=== PATIENT | male | born 1955 | race Caucasian/White ===

== ENCOUNTER 2016-11-09 12:01 | Emergency (ER) | payer OTHER ==
[~2016-11-09] VITALS: Ht 177.8 cm; Wt 85.0 kg
[2016-11-09 12:09] VITALS: O2SAT 97
[2016-11-09 12:14] VITALS: TEMP 36.9; Ht 177.8 cm; Wt 85.0 kg
--- NOTE | 2016-11-09 13:00 | EMERGENCY ROOM VISIT NOTE ---
History Report prepared by Giuseppe: Irlanda Leung Under the Supervision of: Dr. Prasad José M.D. First contact with patient: 12:36 Chief Complaint: CHEST PAIN Stated Complaint: BLURRED VISION/ CHEST TIGHTNESS Nursing Triage Summary: Pt presents to room b07 via [facility]. pt reports he felt fine earlier today and then was at [employer] and developed right eye vision blurriness, queasiness and mid chest pain. pt reports he is in town doing work and is from [place]. pt denies any hx of cardia issues. History of Present Illness The patient is a 61 year old male who presents to the Emergency Room with complaints of dull, persistent chest pain that began three to four days ago. He currently rates his discomfort as a 3/10 in severity. The patient states that today he was at the [employer] when he started noticing a change in his vision. He states that he has been becoming clammy and diaphoretic. The patient states that he noticed increased chest pain and became nauseous. He states that he felt syncopal so he sat down in [place]. The patient notes that he has been under increased stress recently and notes a decrease in sleep. The patient notes a decrease in appetite, stating that he didn't eat breakfast this morning. He states that he is a smoker. The patient notes a family history of heart disease, stating that his father from an [place]. He states that he has not followed with a primary care physician in over a year. The patient states that he is in the area doing work, noting that he is from [place]. He notes a past medical history of hepatitis C and Genital Herpes. The patient states that he has not been regularly taking his Valtrex. Source of History: patient Onset: three to four days ago Position: chest Symptom Intensity: 3/10 Quality: dull Timing: other (persistent) Associated Symptoms: + diaphoresis, + nausea Note: Associated Symptoms: clammy, decrease in sleep, increase in stress, vision change, syncopal Review of Systems See HPI for pertinent positives & negatives. A total of 10 systems reviewed and were otherwise negative. Past Medical & Surgical Medical Problems: (1) Genital herpes (2) Hepatitis C Family History Heart disease Social History Smoking Status: Current Every Day Smoker Marital Status: Occupation Status: employed Current/Historical Medications Scheduled Aspirin (Aspirin Chewable), 324 MG PO DAILY Allergies Coded Allergies: Tramadol (Unverified Adverse Reaction, Intermediate, HIVES,RASH, 11/09/16) Physical Exam Vital Signs Date Time Temp Pulse Resp B/P Pulse Ox O2 Delivery O2 Flow Rate FiO2 11/09/16 14:42 82 18 169/96 98 Room Air 11/09/16 13:29 86 18 161/92 95 Room Air 11/09/16 12:14 36.9 87 20 183/103 97 Room Air 11/09/16 12:14 93 11/09/16 12:09 97 Room Air Physical Exam GENERAL: Patient is a healthy-appearing well-nourished HEAD: Normocephalic atraumatic EYES: Ocular movements intact pupils equal and react to light OROPHARYNX mucous membranes are moist no exudates present no erythema or edema present NECK: Supple no nuchal rigidity CHEST: Good equal expansion LUNGS: Clear and equal to auscultation CARDIAC: Normal S1 and S2 ABDOMEN: Soft nontender no guarding BACK: No CVA tenderness EXTREMITIES: No pain upon palpation normal muscle strength in all groups no clubbing cyanosis or edema NEURO: Patient is following commands is answering questions appropriately. Alert and oriented x3 Cranial Nerves 2-12 grossly intact Medical Decision & Procedures ER Provider Diagnostic Interpretation: X-ray results as stated below per interpretation by me and the radiologist: CHEST ONE VIEW PORTABLE HISTORY: Atypical CHEST PAIN COMPARISON: None. FINDINGS: The heart is normal in size. No pleural effusions. No pneumothorax. The left lung is clear. No evidence for pulmonary edema. Within the right upper lobe there is question of a 2 cm triangular focal density. This may be due to the overlapping vessels and ribs. Small nodular density within the lateral aspect of the left lower lobe likely represents a nipple shadow. IMPRESSION: 1. No acute process within the chest. 2. Questionable 2 cm triangular opacity within the right upper lobe which may be due to the overlapping vessels and ribs. Recommend repeat PA and lateral view of the chest to exclude the possibility of an underlying pulmonary abnormality. Electronically signed by: Tawanda Armando M.D. 11/09/2016 1:35 PM Dictated Date/Time: 11/09/2016 1:32 PM CHEST 2 VIEWS ROUTINE CLINICAL HISTORY: Right upper lung opacity on portable chest radiograph. COMPARISON STUDY: Portable chest radiograph performed earlier today. FINDINGS: Lung volumes are normal. The possible right upper lung opacity shown on portable chest radiograph performed earlier today is not evident on this exam. This was artifactual. Lungs are clear with the exception of subsegmental left basilar atelectasis. Heart size is normal. Mediastinal contours are normal. There is no evidence of pulmonary edema. There may be mild lung hyperinflation. IMPRESSION: 1. No acute cardiopulmonary findings. 2. The possible right upper lung opacity shown on prior portable chest radiograph is not visualized and was artifactual. Electronically signed by: Ant Best M.D. 11/09/2016 2:28 PM Dictated Date/Time: 11/09/2016 2:26 PM Laboratory Results 11/09/16 13:20 Red Blood Count 4.67, Mean Corpuscular Volume 86.9, Mean Corpuscular Hemoglobin 30.8, Mean Corpuscular Hemoglobin Concent 35.5, Mean Platelet Volume 9.7, Neutrophils (%) (Auto) 65.3, Lymphocytes (%) (Auto) 26.6, Monocytes (%) (Auto) 6.7, Eosinophils (%) (Auto) 1.0, Basophils (%) (Auto) 0.2, Neutrophils # (Auto) 5.95, Lymphocytes # (Auto) 2.42, Monocytes # (Auto) 0.61, Eosinophils # (Auto) 0.09, Basophils # (Auto) 0.02 11/09/16 13:20 Test 11/09/16 13:20 11/09/16 13:24 11/09/16 13:26 White Blood Count 9.11 K/uL (4.8-10.8) Red Blood Count 4.67 M/uL (4.7-6.1) Hemoglobin 14.4 g/dL (14.0-18.0) Hematocrit 40.6 % (42-52) Mean Corpuscular Volume 86.9 fL (80-100) Mean Corpuscular Hemoglobin 30.8 pg (25-34) Mean Corpuscular Hemoglobin Concent 35.5 g/dl (32-36) Platelet Count 226 K/uL (130-400) Mean Platelet Volume 9.7 fL (7.4-10.4) Neutrophils (%) (Auto) 65.3 % Lymphocytes (%) (Auto) 26.6 % Monocytes (%) (Auto) 6.7 % Eosinophils (%) (Auto) 1.0 % Basophils (%) (Auto) 0.2 % Neutrophils # (Auto) 5.95 K/uL (1.4-6.5) Lymphocytes # (Auto) 2.42 K/uL (1.2-3.4) Monocytes # (Auto) 0.61 K/uL (0.11-0.59) Eosinophils # (Auto) 0.09 K/uL (0-0.5) Basophils # (Auto) 0.02 K/uL (0-0.2) RDW Standard Deviation 42.0 fL (36.4-46.3) RDW Coefficient of Variation 13.2 % (11.5-14.5) Immature Granulocyte % (Auto) 0.2 % Immature Granulocyte # (Auto) 0.02 K/uL (0.00-0.02) Est Creatinine Clear Calc Drug Dose 95.4 ml/min Estimated GFR () 109.8 Estimated GFR (Non- 94.7 BUN/Creatinine Ratio 12.8 (10-20) Calcium Level 8.5 mg/dl (8.5-10.1) Total Bilirubin 0.4 mg/dl (0.2-1) Direct Bilirubin 0.1 mg/dl (0-0.2) Aspartate Amino Transf (AST/SGOT) 12 U/L (15-37) Alanine Aminotransferase (ALT/SGPT) 22 U/L (12-78) Alkaline Phosphatase 47 U/L (45-117) Total Creatine Kinase 215 U/L (39-308) Creatine Kinase MB 2.1 ng/ml (0.5-3.6) Creatine Kinase MB Ratio 1.0 (0-3.0) Troponin I < 0.015 ng/ml (0-0.045) Total Protein 7.2 gm/dl (6.4-8.2) Albumin 4.1 gm/dl (3.4-5.0) Lipase 292 U/L (73-393) Bedside D-Dimer 245 ng/mlFEU (0-450) Bedside Hemoglobin 15.0 g/dl (14.0-18.0) Bedside Hematocrit 44 % (42-52) Bedside Sodium 141 mEq/L (135-144) Bedside Potassium 4.4 mEq/L (3.3-5.0) Bedside Chloride 104 mEq/L (101-112) Bedside Total CO2 23 mEq/l (24-31) Anion Gap 20.0 mmol/L (16-25) Bedside Blood Urea Nitrogen 10 mg/dl (7-18) Bedside Creatinine 0.8 mg/dl (0.6-1.3) Bedside Glucose (other) 95 mg/dl (70-99) Bedside Ionized Calcium (Jessica) 1.17 mmol/l (1.12-1.32) Labs reviewed by ED physician. ECG Indication: chest pain Rate (beats per minute): 85 Rhythm: normal sinus Findings: no acute ischemic change, no ectopy ED Course 1249: Past medical records reviewed. The patient was evaluated in room B7. A complete history and physical examination was performed. 1412: I reevaluated the patient and he is going to have another chest x-ray. 1500: I reevaluated the patient and he is resting comfortably. I discussed the exam findings with him and I strongly recommended further evaluation in the hospital. He declined. The patient will be discharged home. Medical Decision Differential diagnosis: Etiologies such as cardiac ischemia, aortic dissection, pulmonary embolism, pneumonia, pneumothorax, musculoskeletal, infections, pericarditis, myocarditis , esophageal rupture, gastrointestinal, as well as others were entertained. This is a 61-year-old male who presents emergency department with what appears to be a vasovagal episode along with chest pain along with it. The patient last had a stress test proximal wy 5 years ago. Based on these findings I strongly recommended to the patient that he be admitted to the hospital. A d- dimer was obtained which was found to be normal, the patient has a normal EKG as well as CK-MB and troponin function. I did stress to the patient that this does not rule out heart and as he is visiting from out of town he should most likely be admitted. I did suspect that the patient had a vasovagal episode brought on by not eating today along with his infection. He was given normal saline bolus in the emergency Department and fed. I again strongly recommended to the patient that he be admitted however he is adamantly refusing and wishes to go home. I did recommend he follow up with either cardiology here at [facility] or at home. The patient has demonstrated no significant defect in the decision-making capacity to make choices. The encounter had a good level of communication with language the patient can easily understand. I feel trust was present and conveyed that our action/intentions were the best interest of the patient. The patient was given all relevant information and reiterated the explained risks and benefits. The patient explained the reasoning for refusing treatment clearly. The patient possesses and expresses a set of values and goals, the ability to communicate and understand, and an ability to reason and deliberate. Despite acting emphatically, attentively and with the utmost patient's the patient declined further treatment. I offered options, negotiated, and explored every reasonable choice. I must respect the patient's autonomy and that they feel that their choices are best for them despite the associated risks of leaving without completing the evaluation. The patient was informed about the findings as listed above. All questions were answered and he was pleased with the treatment. Return instructions were outlined and the patient was discharged in stable condition. Impression Primary Impression: Precordial chest pain Additional Impressions: Vasovagal episode Hypertension Scribe Attestation The scribe's documentation has been prepared under my direction and personally reviewed by me in its entirety. I confirm that the note above accurately reflects all work, treatment, procedures, and medical decision making performed by me. Departure Information Dispostion Home / Self-Care Referrals Jorge Jones M.D. Forms HOME CARE DOCUMENTATION FORM, IMPORTANT VISIT INFORMATION, School Instructions, Work Instructions Patient Instructions Chest Pain - [facility], High Blood Pressure, My [facility], Treatment for Vasovagal Syncope, Understanding Vasovagal Syncope Additional Instructions Increase fluids next 48 hours Need follow up with Dr Jones, No strenuous activity until follow up You have been examined and treated today on an emergency basis only. This is not a substitute for, or an effort to provide, complete comprehensive medical care. It is impossible to recognize and treat all injuries or illnesses in a single emergency department visit. It is therefore important that you follow up closely with your PCP. Call as soon as possible for an appointment. Thank you for your time and consideration. I look forward to speaking with you again soon. Please don't hesitate to call us if you have any questions. Problem Qualifiers Additional Impressions: Hypertension Hypertension type: unspecified secondary hypertension Qualified Codes: I15.9 - Secondary hypertension, unspecified
[2016-11-09] MEDS ORDERED: ASPCH81X PO (13:08)
[2016-11-09 13:33] LABS: BASO % 0.2 %; BASO ABS # 0.02 K/uL (0-0.2); COMPLETE YES; HEMATOCRIT 40.6 % (42-52); IG% 0.2 %; LYMPH % 26.6 %; LYMPH ABS # 2.42 K/uL (1.2-3.4); MEAN CELL VOLUME 86.9 fL (80-100); MEAN CORPUSCULAR HEMOGLOBIN 30.8 pg (25-34); MEAN CORPUSCULAR HGB CONC 35.5 g/dl (32-36); MEAN PLATELET VOLUME 9.7 fL (7.4-10.4); MONO % 6.7 %; NEUT % 65.3 %; PLATELET COUNT 226 K/uL (130-400); RED BLOOD COUNT 4.67 M/uL (4.7-6.1); WHITE BLOOD COUNT 9.11 K/uL (4.8-10.8)
--- NOTE | 2016-11-09 13:37 | DIAGNOSTIC IMAGING REPORT ---
CHEST ONE VIEW PORTABLE HISTORY: Atypical CHEST PAIN COMPARISON: None. FINDINGS: The heart is normal in size. No pleural effusions. No pneumothorax. The left lung is clear. No evidence for pulmonary edema. Within the right upper lobe there is question of a 2 cm triangular focal density. This may be due to the overlapping vessels and ribs. Small nodular density within the lateral aspect of the left lower lobe likely represents a nipple shadow. IMPRESSION: 1. No acute process within the chest. 2. Questionable 2 cm triangular opacity within the right upper lobe which may be due to the overlapping vessels and ribs. Recommend repeat PA and lateral view of the chest to exclude the possibility of an underlying pulmonary abnormality. Electronically signed by: Tawanda Armando M.D. 11/09/2016 1:35 PM Dictated Date/Time: 11/09/2016 1:32 PM
[2016-11-09 13:40] LABS: ISTAT CREATININE 0.8 mg/dl (0.6-1.3); ISTAT IONIZED CALCIUM 1.17 mmol/l (1.12-1.32)
[2016-11-09 13:52] LABS: ALT/SGPT 22 U/L (12-78); AST/SGOT 12 U/L (15-37); BLOOD UREA NITROGEN 11 mg/dl (7-18); BUN/CREATININE RATIO 12.8 (10-20); CALCIUM 8.5 mg/dl (8.5-10.1); CARBON DIOXIDE 27 mmol/L (21-32); CHLORIDE 109 mmol/L (98-107); CREATININE 0.85 mg/dl (0.60-1.40); GLUCOSE 94 mg/dl (70-99); POTASSIUM 4.3 mmol/L (3.5-5.1); SODIUM 141 mmol/L (136-145)
[2016-11-09 13:57] LABS: ALKALINE PHOSPHATASE 47 U/L (45-117)
--- NOTE | 2016-11-09 14:29 | DIAGNOSTIC IMAGING REPORT ---
CHEST 2 VIEWS ROUTINE CLINICAL HISTORY: Right upper lung opacity on portable chest radiograph. COMPARISON STUDY: Portable chest radiograph performed earlier today. FINDINGS: Lung volumes are normal. The possible right upper lung opacity shown on portable chest radiograph performed earlier today is not evident on this exam. This was artifactual. Lungs are clear with the exception of subsegmental left basilar atelectasis. Heart size is normal. Mediastinal contours are normal. There is no evidence of pulmonary edema. There may be mild lung hyperinflation. IMPRESSION: 1. No acute cardiopulmonary findings. 2. The possible right upper lung opacity shown on prior portable chest radiograph is not visualized and was artifactual. Electronically signed by: Ant Best M.D. 11/09/2016 2:28 PM Dictated Date/Time: 11/09/2016 2:26 PM
[2016-11-09 14:42] VITALS: BP 169/96; PULSE 82; O2SAT 98
== END 2016-11-09 15:08 | disposition home or self-care (01) ==
LOC: C.EDB 12:11
DX: R07.2 Precordial pain (principal); R55 Syncope and collapse; I15.9 Secondary hypertension, unspecified; F17.200 Nicotine dependence, unspecified, uncomplicated; Z82.49 Family history of ischemic heart disease and other diseases of the circulatory system; Z79.82 Long term (current) use of aspirin